=== PATIENT | male | born 1985 | race Caucasian/White ===

== ENCOUNTER 2016-12-09 21:11 | Emergency (ER) | payer OTHER ==
[~2016-12-09] VITALS: Ht 182.9 cm; Wt 102.1 kg
[2016-12-09 21:30] VITALS: BP 150/58
--- NOTE | 2016-12-09 21:54 | NUR ---
[facility] TO [facility]
[2016-12-09] MEDS ORDERED: KETOROLAC 30 MG/ML VIAL IM ONE (22:10)
[2016-12-09] MEDS ORDERED: HYDROcodone/APAP 5/325 MG 1 TAB TAB PO ONE (22:10)
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
[2016-12-09 22:52] VITALS: BP 142/62
--- NOTE | 2016-12-09 22:52 | NUR ---
Patient discharged with v/s stable. Written and verbal after care instructions given and explained. Patient alert, oriented and verbalized understanding of instructions. Wheel Chair Assisted with WHEELCHAIR. All questions addressed prior to discharge. ID band removed. Patient advised to follow up with PMD. Rx of KEFLEX, NORCO given. Patient educated on indication of medication including possible reaction and side effects. Opportunity to ask questions provided and answered.
== END 2016-12-09 22:52 | disposition home or self-care (01) ==
LOC: MED 21:11
DX: M25.461 Effusion, right knee (principal)
CPT/HCPCS: 29505; 73562; 96372; 99284; J1885